=== PATIENT | male | born 1965 | race Caucasian/White ===

== ENCOUNTER 2019-10-11 13:26 | Emergency (ER) | payer MEDICAID, SELFPAY ==
[~2019-10-11] VITALS: Ht 152.4 cm; Wt 90.3 kg
[2019-10-11 13:46] VITALS: BP 140/78
--- NOTE | 2019-10-11 13:50 | NUR ---
Note moi in ED - 10/11/19 at 1405 by [email or web address] BIB SELF C/O COUGH, RIGHT CHEST PAIN , CAN'T SLEEP AT NIGHT X 4 DAYS. MED HX: DENIES. PATIENT STATES PAIN OF 5/10 AT THIS TIME.
--- NOTE | 2019-10-11 13:52 | NUR ---
BIB SELF C/O COUGH, RIGHT CHEST PAIN , CAN'T SLEEP AT NIGHT X 4 DAYS. MED HX: DENIES. PATIENT STATES PAIN OF 5/10 AT THIS TIME.
--- NOTE | 2019-10-11 13:53 | NUR ---
Patient being evaluated by DR ZAVALETA at [facility].
[2019-10-11] MEDS ORDERED: ACETAMINOPHEN 325 MG TAB PO ONE (14:00)
[2019-10-11] MEDS ORDERED: ASPIRIN 325 MG TAB PO ONE (14:00)
--- NOTE | 2019-10-11 14:02 | NUR ---
COVID SWAB DONE. PT AMB TO BED 9.
--- NOTE | 2019-10-11 14:19 | NUR ---
X RAY AT BEDSIDE.
[2019-10-11 14:20] LABS: BASOPHILS # (AUTO) 0.1 K/uL (0.00-0.22); BASOPHILS % (AUTO) 0.8 % (0.0-2.0); EOSINOPHILS % (AUTO) 0.1 % (0.0-4.0); HEMATOCRIT 48.6 % (36-52); HEMOGLOBIN 16.2 g/dL (12.0-18.0); LYMPHOCYTES # (AUTO) 1.3 K/uL (2.0-11.5); MEAN CORPUSCULAR HEMOGLOBIN 29 pg (27-31); MEAN CORPUSCULAR HGB CONC 33 g/dL (33-37); MEAN CORPUSCULAR VOLUME 87.4 fL (80-94); MONOCYTES # (AUTO) 0.8 K/uL (0.8-1.0); MONOCYTES % (AUTO) 7.7 % (1.7-9.3); NEUTROPHILS # (AUTO) 8.3 K/uL (1.8-7.7); NEUTROPHILS % (AUTO) 79.4 % (42.2-75.2); PLATELET COUNT (AUTO) 206 K/uL (140-450); RED BLOOD CELL COUNT(AUTO) 5.57 MIL/uL (4.20-6.10); RED CELL DISTRIBUTION WIDTH 13.6 % (11.6-13.7); WHITE BLOOD COUNT (AUTO) 10.4 K/uL (4.8-10.8)
[2019-10-11 15:17] LABS: ANION GAP 20.1 (8-16); CARBON DIOXIDE 21.3 mmol/L (21-32); CREATININE 1.2 mg/dL (0.6-1.3); POTASSIUM 4.4 mmol/L (3.5-5.1)
--- NOTE | 2019-10-11 15:22 | NUR ---
Pt sitting upright awake and alert. No complaints at this time. Will continue to monitor
[2019-10-11 16:15] VITALS: BP 135/77
--- NOTE | 2019-10-11 16:16 | NUR ---
Patient discharged with v/s stable. Written and verbal after care instructions given and explained. Patient alert, oriented and verbalized understanding of instructions. Ambulatory with steady gait. All questions addressed prior to discharge. ID band removed. Patient advised to follow up with PMD. Rx of Tessalon Perles 100mg and Albuterol 90mcg/actuation given. Patient educated on indication of medication including possible reaction and side effects. Opportunity to ask questions provided and answered.
--- NOTE | 2019-10-12 17:42 | NUR ---
COVID-19 RESULT POSITIVE, COPY OF RESULTS WILL BE GIVEN TO [facility] AT [facility]
== END 2019-10-11 16:16 | disposition home or self-care (01) ==
LOC: MED 13:26 → EDBD 13:26 → MED 16:16
DX: U07.1 COVID-19 (principal); B34.9 Viral infection, unspecified; E11.65 Type 2 diabetes mellitus with hyperglycemia; R07.9 Chest pain, unspecified
CPT/HCPCS: 71045; 80048; 84484; 85025; 93005; 99285; Q0092; U0003